=== PATIENT | male | born 1960 | race Caucasian/White ===

== ENCOUNTER → 2020-08-24 | Outpatient (CLI) | payer OTHER ==
[~2020-08-24] MED LIST: CEPH-376 PO
== END | disposition home or self-care (01) ==
LOC: STAR 08:19
PROVIDERS: ATTEND Student in an Organized Health Care Education/Training Program
DX: Z01.818 Encounter for other preprocedural examination (principal); N20.0 Calculus of kidney; Z20.822 Contact with and (suspected) exposure to COVID-19
CPT/HCPCS: 93005; U0003; U0005

== ENCOUNTER 2020-08-30 13:27 | Day surgery (SDC) | payer OTHER ==
[~2020-08-30] VITALS: Ht 177.8 cm; Wt 73.1 kg
[2020-08-30 13:56] VITALS: BP 124/74
[2020-08-30] MEDS ORDERED: CHLORHEXIDINE 15 ML UDC PO ONE (14:00)
[2020-08-30] MEDS ORDERED: LACTATED RINGERS 1,000 ML IV SCH (14:00)
[2020-08-30] MEDS ORDERED: OMNIPAQUE 350 MG/ML, 50 ML BOTTLE ONE (14:45)
[2020-08-30] MEDS ORDERED: MIDAZOLAM 1 MG/ML, 2ML ONE (15:22)
[2020-08-30] MEDS ORDERED: FENTANYL PF 250 MCG/5ML ONE (15:22)
[2020-08-30] MEDS ORDERED: EPHEDRINE 50 MG/ML, 1ML ONE (15:37)
[2020-08-30] MEDS ORDERED: CEFAZOLIN 1,000 MG ONE (15:39)
[2020-08-30] MEDS ORDERED: hydrALAzine 20 MG/ML, 1ML IV PRN (16:30)
[2020-08-30] MEDS ORDERED: OXYcodone 5 MG/5 ML ORAL.SOL UDC PO PRN (16:30)
[2020-08-30] MEDS ORDERED: FENTANYL PF 100 MCG/2ML IV PRN (16:30)
[2020-08-30] MEDS ORDERED: LABETALOL 5MG/ML, 20ML IV PRN (16:30)
[2020-08-30] MEDS ORDERED: PROMETHAZINE 25 MG/ML, 1ML IVPush PRN (16:30)
[2020-08-30] MEDS ORDERED: ACETAMINOPHEN 325 MG TABLET PO PRN (16:30)
[2020-08-30] MEDS ORDERED: ONDANSETRON 2MG/ML, 2ML IVPush PRN (16:30)
[2020-08-30] MEDS ORDERED: HYDROmorphone 1 MG/ML, 1ML INJ IVPush PRN (16:30)
[2020-08-30] MEDS ORDERED: ONDANSETRON 2MG/ML, 2ML ONE (16:42)
[2020-08-30] MEDS ORDERED: PROPOFOL 10 MG/ML, 20ML ONE (16:42)
[2020-08-30] MEDS ORDERED: DEXAMETHASONE 4 MG/ML, 1ML ONE ×2 (16:43)
== END 2020-08-30 18:28 | disposition home or self-care (01) ==
LOC: OR 13:27
PROVIDERS: ATTEND Student in an Organized Health Care Education/Training Program
DX: N20.2 Calculus of kidney with calculus of ureter (principal); N28.89 Other specified disorders of kidney and ureter; N18.9 Chronic kidney disease, unspecified; Z72.89 Other problems related to lifestyle; Z88.1 Allergy status to other antibiotic agents; Z79.899 Other long term (current) drug therapy
CPT/HCPCS: 52353; 52356; 74018; 82360; 88300; C1769; C2617; J0690; J1100; J2250; J2405; J2704; J3010; J7120; 76000; Q9967